=== PATIENT | male | born 1960 | race Caucasian/White ===

== ENCOUNTER 2017-01-12 14:56 | Emergency (ER) | payer OTHER ==
[2017-01-12 15:37] LABS: BASOPHIL 0.3 % (0-2); HCT 40.8 % (42.0-52.0); HGB 13.8 g/dl (13.2-18.0); LYMPHOCYTE 25.6 % (15-48); MCH 29.6 pg (25.0-31.0); MCHC 33.8 g/dL (32.0-36.0); MCV 87.4 fL (78.0-100.0); MONOCYTE 8.4 % (0-12); MPV 10.3 fL (6.0-9.5); NEUTROPHIL 62.7 % (41-80); PLT 253 K/uL (150-400); RBC 4.67 M/uL (4.70-6.00); RDW 12.7 % (11.5-14.0); WBC 7.3 K/uL (4.0-10.5)
[2017-01-12 15:49] LABS: INR 1.04 (0.9-1.2); PROTHROMBIN TIME 13.2 SECONDS (11.7-14.0); PTT 29.5 SECONDS (23.2-31.4)
[2017-01-12 16:53] LABS: CKMB 2.59 ng/mL (0.97-4.94); MYOGLOBIN 43 ng/mL (26-65); TROPONIN T < 0.010 ng/mL
[2017-01-12 16:54] LABS: ALBUMIN 4.5 g/dL (3.5-5.0); BILIRUBIN - TOTAL 0.2 mg/dL (0.1-1.0); CREATININE 0.9 mg/dL (0.7-1.2); GLOBULIN (CALCULATION) 2.2 g/dL (2.2-4.2); POTASSIUM 4.1 mmol/L (3.5-5.1); TOTAL PROTEIN 6.7 g/dL (6.4-8.3)
== END 2017-01-12 20:56 | disposition other institution (70) ==
LOC: FER 14:56
PROVIDERS: Internal Medicine
DX: G45.9 Transient cerebral ischemic attack, unspecified (principal); F32.9 Major depressive disorder, single episode, unspecified; Z82.0 Family history of epilepsy and other diseases of the nervous system; Z87.891 Personal history of nicotine dependence; Z87.39 Personal history of other diseases of the musculoskeletal system and connective tissue; Z79.899 Other long term (current) drug therapy
CPT/HCPCS: 36415; 70450; 71010; 80053; 80061; 82550; 82553; 83874; 84484; 85025; 85610; 85730; 93005